=== PATIENT | female | born 1985 | race Caucasian/White ===

== ENCOUNTER 2020-03-19 05:34 | Inpatient (IN) ==
--- NOTE | 2020-03-18 10:31 | History & Physical Report ---
Date of Service March 18, 2020 Assessment & Plan (1) Breech presentation of fetus: The risks, benefits, and alternatives to the surgery have been discussed. While the benefits will be delivery of the infant, the risks are bleeding, infection, inadvertent injury to bowel or bladder, readmission, reoperation, deep venous thrombosis, or pulmonary embolus. All questions answered of the patient. The permit has been signed, and she wishes to proceed. This chart was completed utilizing M-Modal voice recognition software. Grammatical errors, random word insertions, pronoun errors, and incomplete sentences are occasional consequence of this system. Any questions or concerns about the content, text or information contained within the body of this dictation should be addressed directly to the physician for clarification History of Present Illness Chief Complaint: Breech Primary Care Provider: Mary Zavala DO The patient is a 34-year-old 1 para 0 with an EDC of 23 March, at 39+ weeks gestational age who was admitted for primary section for breech presentation. The patient's breech presentation was diagnosed at approximately 36 weeks gestational age. The patient had an attempted external cephalic version at 37 weeks on labor and delivery which was unsuccessful. Treatment options were discussed and the patient is admitted for the section. The patient has had a benign course. Her blood type is O-positive antibody negative, rubella immune, hepatitis B negative, she had a normal 1 hour Glucola x2, she had a negative cell free DNA screening, negative SMA and cystic fibrosis screen, and a positive 3rd trimester beta strep culture. Allergies Allergy/AdvReac Type Severity Reaction Status Date / Time No Known Allergies Allergy Verified 03/18/20 08:43 Home Medications Home Medications Medication Instructions Recorded Confirmed Type PNV no.[id number] 1 tab PO DAILY 03/03/20 03/18/20 History [ Gummies] ferrous sulfate 325 mg PO DAILY 03/03/20 03/18/20 History magnesium 30 mg PO 3XWK 03/03/20 03/18/20 History omega-3 fatty acids-fish oil 1 cap PO DAILY 03/03/20 03/18/20 History vitamin B complex 1 cap PO DAILY 03/03/20 03/18/20 History Patient History Medical History (Updated 03/18/20 @ 10:23 by Allan Omer Jr, MD, FACOG) H/O febrile seizure AGE 5 History of intestinal parasite (~03/18/14) GIARDIA Hx of gastritis Hx of varicella LGSIL on Pap smear of cervix Seasonal allergies Surgical History (Updated 03/16/20 @ 08:49 by Anjelica Cha, SHAUNNA) H/O colposcopy with cervical biopsy X 2 (NO ANESTHESIA USED) History of esophagogastroduodenoscopy (EGD) Family History (Updated 03/16/20 @ 08:50 by Anjelica Cha, SHAUNNA) Father Heart murmur Mother Hypertension Grandfather (Paternal) Colorectal cancer Family history of diabetes mellitus Social History (Updated 08/19/19 @ 11:16 by Migdalia Cha) Preferred Language: Khmer Labor Contractor Required: No Beliefs That Will Affect Care: None marital status: marital status details: Ab Pike (31) [phone] Current Living Situation: Spouse Current Living Situation Comment: lives spouse, 1 dog current occupational status: employed current occupation: Director of Rehab Feels Safe at Home: Yes Smoking Status: Never smoker Second Hand Exposure: No ; Hx Alcohol Use: No Hx Substance Use: No Physical Exam Constitutional: WD/WN, vitals as above Respiratory: Auscultation: lungs clear to auscultation bilaterally Cardiovascular: RRR, no murmur, no edema Extremities: no calf tenderness Gastrointestinal (Abdomen): Gravid, breech, positive heart tones, estimated weight is 7 1/2 llb Genitourinary: Closed posterior Coding Level of Care Code None Diagnoses Breech presentation of fetus O32.1XX0
[2020-03-19] MEDS ORDERED: CITRIC ACID/SODIUM CITRATE 15 ML UDC PO SCH (06:00)
[2020-03-19] MEDS ORDERED: CEFAZOLIN 2000MG 2,000 MG/15 ML SYR IV SCH (06:00)
[2020-03-19] MEDS ORDERED: LACTATED RINGER'S 1,000 ML IV SCH ×2 (06:00→09:25)
[2020-03-19 06:26] LABS: Basophils # (auto) 0.02 K/uL (0-0.2); Basophils % (auto) 0.2 %; Eosinophils # (auto) 0.06 K/uL (0-0.5); Eosinophils % (auto) 0.6 %; Hemoglobin 11.2 g/dL (12.0-16.0); Immature Granulocytes # (auto) 0.07 K/uL (0.00-0.02); Immature Granulocytes % (auto) 0.8 %; Lymphocytes # (auto) 2.06 K/uL (1.2-3.4); Lymphocytes % (auto) 22.3 %; Mean Corpuscular Hemoglobin 30.3 pg (25-34); Mean Corpuscular Hgb Conc 32.9 g/dL (32-36); Mean Corpuscular Volume 91.9 fL (80-100); Mean Platelet Volume 11.2 fL (7.4-10.4); Monocytes # (auto) 0.64 K/uL (0.11-0.59); Monocytes % (auto) 6.9 %; Neutrophils % (auto) 69.2 %; Platelet Count 196 K/uL (130-400); RDW Coefficient of Variation 13.4 % (11.5-14.5); RDW Standard Deviation 44.6 fL (36.4-46.3); White Blood Count 9.25 K/uL (4.8-10.8)
[2020-03-19] MEDS ORDERED: SODIUM CHLORIDE 0.9% 250 ML IV PRN (06:39)
[2020-03-19] MEDS ORDERED: MoRPHine SULFATE PF 1 MG/ML 10 ML AMP/VIAL ONE (06:47)
[2020-03-19] MEDS ORDERED: fentaNYL citrate 100 MCG/2 ML VIAL ONE (06:47)
--- NOTE | 2020-03-19 06:58 | Anesthesiology Consultation ---
Date of Service March 19, 2020 Assessment & Plan (1) Encounter for pre-operative examination: Chart Review Chart Review: Acceptable Risk for Surgery and Patient NOT seen in Pre Admission Testing Consults Requested none History Surgery Operation Date: 03/19/20 07:30 Proposed Procedures p Section in LD - Allan Omer Jr, MD, FACOG Height/Weight Height: 5 ft 3 in Weight: 71.668 kg Allergies Allergy/AdvReac Type Severity Reaction Status Date / Time No Known Allergies Allergy Verified 03/18/20 08:43 Medications Home Medications Medication Instructions Recorded Confirmed Last Taken PNV no.[id number] 1 tab PO DAILY 03/03/20 03/18/20 03/03/20 06:45 [ Gummies] ferrous sulfate 325 mg PO DAILY 03/03/20 03/18/20 03/02/20 19:00 magnesium 30 mg PO 3XWK 03/03/20 03/18/20 03/02/20 19:30 omega-3 fatty acids-fish oil 1 cap PO DAILY 03/03/20 03/18/20 03/02/20 19:30 vitamin B complex 1 cap PO DAILY 03/03/20 03/18/20 03/02/20 19:30 Active Medications Generic Name Dose Route Start Last Admin Trade Name Pastor PRN Reason Stop Dose Admin Lactated Ringer's 1,000 mls @ 999 mls/hr 03/19/20 06:00 03/19/20 06:00 Lr IV 03/19/20 07:00 999 mls/hr .Q1H1M DENISHA Administration NPO Date Last Intake of Fluids: 03/18/20 Time Last Intake of Fluids: 23:45 Date Last Intake of Solids: 03/18/20 Time Last Intake of Solids: 23:00 Past Medical History Medical History H/O febrile seizure AGE 5 History of intestinal parasite (~03/18/14) GIARDIA Hx of gastritis Hx of varicella LGSIL on Pap smear of cervix Seasonal allergies Exercise / Class Metabolic Activity II 4-5 Yardwork/Stairs/Walk up hill Past Family History Family History Father Heart murmur Mother Hypertension Grandfather (Paternal) Colorectal cancer Family history of diabetes mellitus Past Surgical History Surgical History H/O colposcopy with cervical biopsy X 2 (NO ANESTHESIA USED) History of esophagogastroduodenoscopy (EGD) Past Anesthesia History No Hx of Anesthesia Complications and No Family Hx of Anesthesia Complications History of PONV No Hx of PONV and No Hx of Motion Sickness Social History Smoking Status: Never smoker Do You Dip or Chew Tobacco: No Hx Alcohol Use: No Hx Substance Use: No substance use type: does not use Physical Exam Vital Signs Last Vital Signs Temp 36.9 C 03/19/20 05:41 Pulse 83 03/19/20 06:04 Resp 18 03/19/20 05:41 BP 122/82 03/19/20 06:04 Testing Laboratory Results 03/19/20 06:12
[2020-03-19] MEDS ORDERED: OXYTOCIN 10 UNITS/ML VIAL ONE (07:41)
[2020-03-19] MEDS ORDERED: PHENYLEPHRINE 100MCG/ML 5ML SYR ONE (07:41)
[2020-03-19] MEDS ORDERED: ONDANSETRON INJ 2 MG/ML 2 ML VIAL ONE (07:41)
[2020-03-19] MEDS ORDERED: NALOXONE HCL 0.4 MG/1 ML VIAL/CARP IV PRN (08:30)
[2020-03-19] MEDS ORDERED: DiphenhydrAMINE HCL 50 MG/ML VIAL IV PRN (08:30)
[2020-03-19] MEDS ORDERED: NO NARCOTICS OR SEDATIVES SCH (08:30)
[2020-03-19] MEDS ORDERED: DC INTRASPINAL MORPHINE SCH (08:30)
[2020-03-19] MEDS ORDERED: NALOXONE HCL 1 MG in SODIUM CHLORIDE 0.9% 1000ML 1,000 ML IV PRN (08:30)
[2020-03-19] MEDS ORDERED: MoRPHine SULFATE PF 1 MG/ML 10 ML AMP/VIAL INT SPINAL ONE (08:30)
[2020-03-19] MEDS ORDERED: LACTATED RINGER'S 500 ML IV PRN (08:30)
[2020-03-19] MEDS ORDERED: NALBUPHINE HCL INJ 10 MG/ML AMP IV PRN (08:30)
[2020-03-19] MEDS ORDERED: HYDROmorphone INJ 0.5 MG/0.5 ML SYR IV PRN (08:30)
[2020-03-19] MEDS ORDERED: NALOXONE HCL 0.08 MG in SYRINGE 1.8 ML IV PRN (08:30)
[2020-03-19] MEDS ORDERED: MoRPHine SULFATE 2 MG/ML CARP IV PRN (08:30)
[2020-03-19] MEDS ORDERED: ONDANSETRON INJ 2 MG/ML 2 ML VIAL IV PRN (08:30)
[2020-03-19] MEDS ORDERED: ePHEDrine sulfate 50 MG/ML AMP IV PRN (08:30)
[2020-03-19] MEDS ORDERED: SENNA 8.6 MG TAB PO PRN (08:39)
[2020-03-19] MEDS ORDERED: HYDROCORTISONE ACETATE 25 MG SUPP PR PRN (08:39)
[2020-03-19] MEDS ORDERED: SUPERCREAM 0.870% 15 GM JAR EXT PRN (08:39)
[2020-03-19] MEDS ORDERED: PROMETHAZINE HCL 25 MG in SODIUM CHLORIDE 0.9% 50 ML IV PRN (08:39)
[2020-03-19] MEDS ORDERED: BENZOCAINE 20% AER SPR 82.5 GM CAN EXT PRN (08:39)
[2020-03-19] MEDS ORDERED: MAGNESIUM HYDROXIDE SUSP 30 ML UDC PO PRN (08:39)
[2020-03-19] MEDS ORDERED: DIPHTHERIA/TETANUS/PERTUSSIS 0.5 ML SYR/VIAL IM ONE (08:39)
--- NOTE | 2020-03-19 08:43 | Post Operative Brief Note ---
PG Immediate Post Op with CF Date of Surgery March 19, 2020 Pre & Post Diagnosis Operation Date: 03/19/20 07:30 Pre-Op Diagnosis: 1.Term 2.Breech presentation Post-Op Diagnosis: Same I identified the patient and participated in the time-out.: Yes Procedure Operation Date: 03/19/20 07:30 Actual Procedures p Section in LD with the of a live female child at 0811. (Bilateral) - Allan Omer Jr, MD, FACOG Surgeon Allan Omer Jr, MD, FACOG Cardiac Rehabilitation Specialist Jose M Barton Estimated Blood Loss 800 Findings See Below (Viable female infant, Apgars 8/9; weight 6 lbs 8 ozs, delivered joyce breech, NC x 3, normal appearing tubes and ovaries) Specimens Specimen Description: A: Placenta-exam B: Cord Blood C: Cord Gases Drains Xie Catheter (xie cath placed after spinal anesthesia placed. Clear yellow urine noted upon insertion. )
--- NOTE | 2020-03-19 08:52 | Anesthesiology Progress Note ---
Date of Service March 19, 2020 Anesthesia Post Procedure Vital Signs Vital Signs: Temp Pulse Resp BP Pulse Ox 03/19/20 08:49 71 122/70 03/19/20 08:48 72 100 03/19/20 06:04 83 122/82 03/19/20 05:41 36.9 C 83 18 122/82 Transfer of Care Handoff Completed per policy Notes Mental Status: alert / awake / arousable and participated in evaluation Patient Amnestic to Procedure: No Nausea / Vomiting: adequately controlled Pain: adequately controlled Airway Patency, RR, SpO2: stable & adequate BP & HR: stable & adequate Hydration State: stable & adequate Neuraxial Anesthesia: was administered and sensory block is resolving Anesthetic Complications: no major complications apparent and Pt Satisfied with anesthetic care
--- NOTE | 2020-03-19 08:55 | History & Physical Bridge Note ---
Date of Service March 19, 2020 History & Physical Bridge Note I have examined the patient, reviewed the History & Physical and in the interval since the performance of the History & Physical I have noted the following changes of clinical significance: no changes noted
[2020-03-19 08:58] LABS: Base Excess Cord Arterial Bld 0.5 mEq/L (-9-1.8); CO2 Cord Arterial Blood 57 mmHg (39.1-73.5); HCO3 Cord Arterial Blood 28 mmol/L (19.7-28.5); PO2 Cord Arterial Blood 15 mmHg (4.1-31.7); pH Cord Arterial Blood 7.31 (7.1-7.38)
[2020-03-19 09:02] LABS: Cord Venous Blood HCO3 26 mmol/L (18.4-26.8); Cord Venous Blood PCO2 43 mmHg (30.4-57.2); Cord Venous Blood PO2 23 mmHg (14.1-43.3)
[2020-03-19 09:03] LABS: Oxygen Sat Cord Arterial Blood < 60.0 % (<60)
[2020-03-19 09:04] LABS: O2 Saturation Cord Venous Bld < 60.0 % (<68)
[2020-03-19] MEDS ORDERED: SODIUM CHLORIDE 0.9% 1000ML 1,000 ML IV SCH (09:25)
[2020-03-19] MEDS: OXYTOCIN 20 UNITS in LACTATED RINGER'S 1,000 ML IV SCH ×2 (10:36→20:19)
--- NOTE | 2020-03-19 10:36 | Operative Report (OR) ---
DATE OF OPERATION: 03/19/2020 PREOPERATIVE DIAGNOSES: 1. Term . 2. Breech presentation. POSTOPERATIVE DIAGNOSIS: Same. PROCEDURE PERFORMED: Primary low cervical transverse section. SURGEON: Allan Omer MD FARMWORKER LIVESTOCK: Dr. Geovanny Barajas ANESTHESIA: Epidural. FINDINGS: Viable female infant with Apgars of 8 and 10 and a weight of 6 pounds 8 ounces. Baby delivered from a joyce breech presentation with nuchal cord x3. Placenta delivered and sent for pathological evaluation. Normal appearing tubes and ovaries bilaterally. PROCEDURE IN DETAIL: The patient was taken to the operating room and after spinal anesthesia, was placed in a supine position and draped and prepped in the usual fashion. Pfannenstiel type incision was made. Underlying subcutaneous tissue was dissected down to the ventral abdominal fascia, which was nicked and opened in a horizontal manner. Preperitoneal fascia was dissected away until the peritoneal cavity was entered and opened in a vertical manner. Bladder blade was placed. Peritoneum overlying the uterus was elevated, opened in a semi-lunar fashion, the inferior margin of which was taken down creating the bladder flap. Uterus was entered sharply and extended in a semilunar fashion manually. Viable female with description as above delivered from a joyce breech presentation. Cord was clamped and cut. Cord gases and cord blood samples obtained. Placenta was delivered spontaneously and sent for pathological evaluation. The uterus was then exteriorized. The uterine cavity was wiped clean of any residual blood tissue and/or clot. The uterine incision was then closed with 2 layers of 4-0 Vicryl, the first a running locking stitch, the second an imbricating stitch. Hemostasis was achieved and the uterus was returned to the pelvic cavity. The pericolic gutters were cleared bilaterally of any blood tissue and/or clot. The pelvis was thoroughly irrigated with 1000 mL of warm saline. Sponge and needle count was correct. Inspection of the incision again showed hemostasis. The rectus muscles were plicated in the midline with a running 2-0 Vicryl stitch. The fascia was closed laterally with a running 0 Vicryl suture. The subcutaneous tissue was irrigated with warm saline and the skin incision was closed with 4-0 Monocryl subcuticular stitch. Sterile dressing was applied and the patient was taken to the recovery room in satisfactory condition. I attest to the content of the Intraoperative Record and any orders documented therein. Any exception s are noted below.
[2020-03-19] MEDS ORDERED: KETOROLAC 30 MG/ML VIAL IV PRN (13:15)
[2020-03-19] MEDS ORDERED: OXYCODONE/ACETAMINOPHEN 5mg/325mg TAB PO PRN (13:15)
[2020-03-19] MEDS: SIMETHICONE 80 MG CHEW PO SCH ×3 (13:26→22:12)
[2020-03-19] MEDS: KETOROLAC 30 MG/ML VIAL IV PRN (14:33)
--- NOTE | 2020-03-19 19:12 | Discharge Summary ---
Date of Service March 19, 2020 Admission HPI Per Admitting Provider The patient is a 34-year-old 1 para 0 with an EDC of 23 March, at 39+ weeks gestational age who was admitted for primary section for breech presentation. The patient's breech presentation was diagnosed at approximately 36 weeks gestational age. The patient had an attempted external cephalic version at 37 weeks on labor and delivery which was unsuccessful. Treatment options were discussed and the patient is admitted for the section. The patient has had a benign course. Her blood type is O-positive antibody negative, rubella immune, hepatitis B negative, she had a normal 1 hour Glucola x2, she had a negative cell free DNA screening, negative SMA and cystic fibrosis screen, and a positive 3rd trimester beta strep culture. Admission Exam (Per Admitting) Constitutional WD/WN, vitals as above Respiratory Auscultation: lungs clear to auscultation bilaterally Cardiovascular RRR, no murmur, no edema Extremities: no calf tenderness Discharge Data Consultations 03/19/20 05:57 Consult Anesthesiology Stat Procedures Performed Operation Date: 03/19/20 07:30 Actual Procedures p Section in LD with the of a live female child at 0811. (Bilateral) - Allan Omer Jr, MD, [facility] Course (1) Breech presentation of fetus: On the day of admission the patient was taken to the operating room where she underwent the above listed procedures operative findings showed a viable female with Apgars of 8 and 10 and weight of 6 pounds 8 ounces. Nuchal cord x3 of the baby was delivered from a complete breech presentation. Postoperatively the patient did well. Her Walter catheter was removed on postoperative day #1, her H&H came back at 11 and 33. By the second post- operative day the patient was doing well. She was tolerating a regular diet. SHe will follow-up in 2 weeks for a post-op check. Coding Level of Care Code None Diagnoses Breech presentation of fetus O32.1XX0
[2020-03-20] MEDS: KETOROLAC 30 MG/ML VIAL IV PRN (00:11)
[2020-03-20] MEDS ORDERED: DiphenhydrAMINE HCL 50 MG/ML VIAL IV PRN (02:30)
[2020-03-20] MEDS ORDERED: ONDANSETRON INJ 2 MG/ML 2 ML VIAL IV PRN (02:30)
--- NOTE | 2020-03-20 07:56 | Obstetrical Progress Note ---
Date of Service March 20, 2020 Assessment & Plan (1) Breech presentation of fetus: - dressing removed - discussed surgery and findings with patient - will begin ambulation - routine care, doing well Subjective Ambulation: limited ambulation Feeding Type:: breast feeding Physical Exam Constitutional WD/WN, vitals as above Respiratory normal respiratory effort, lungs clear to auscultation Cardiovascular RRR, no murmur, no edema Gastrointestinal (Abdomen) Dressing removed, Incision intact, appropriate post-op tenderness Musculoskeletal (-) deep calf tenderness Results & Data ([facility]) Vital Signs (Past 12 Hours) Vital Signs Temp Pulse Resp BP Pulse Ox 03/20/20 04:15 97.9 F 78 18 130/82 97 03/20/20 02:00 18 99 03/20/20 01:00 18 99 03/20/20 00:10 98.2 F 59 L 18 113/72 99 03/19/20 23:00 18 97 03/19/20 22:00 18 97 03/19/20 21:00 18 96 03/19/20 20:00 18 96
[2020-03-20] MEDS: FERROUS SULFATE 325 MG TAB PO SCH (08:20)
[2020-03-20] MEDS: SIMETHICONE 80 MG CHEW PO SCH ×4 (08:20→21:43)
[2020-03-20] MEDS: PRENATAL VITAMIN 1 TAB PO SCH ×2 (08:20→09:47)
[2020-03-20] MEDS: IBUPROFEN 600 MG TAB PO PRN ×2 (08:21→18:08)
[2020-03-20 11:28] LABS: Basophils # (auto) 0.01 K/uL (0-0.2); Basophils % (auto) 0.1 %; Eosinophils # (auto) 0.07 K/uL (0-0.5); Eosinophils % (auto) 0.5 %; Hemoglobin 10.4 g/dL (12.0-16.0); Immature Granulocytes # (auto) 0.04 K/uL (0.00-0.02); Immature Granulocytes % (auto) 0.3 %; Lymphocytes # (auto) 1.37 K/uL (1.2-3.4); Lymphocytes % (auto) 10.4 %; Mean Corpuscular Hemoglobin 30.1 pg (25-34); Mean Corpuscular Hgb Conc 33.5 g/dL (32-36); Mean Corpuscular Volume 89.6 fL (80-100); Mean Platelet Volume 10.3 fL (7.4-10.4); Monocytes # (auto) 0.66 K/uL (0.11-0.59); Neutrophils # (auto) 10.99 K/uL (1.4-6.5); Neutrophils % (auto) 83.7 %; Platelet Count 199 K/uL (130-400); RDW Coefficient of Variation 13.4 % (11.5-14.5); RDW Standard Deviation 43.7 fL (36.4-46.3); Red Blood Count 3.46 M/uL (4.2-5.4); White Blood Count 13.14 K/uL (4.8-10.8)
--- NOTE | 2020-03-20 11:44 | Anesthesiology Progress Note ---
Date of Service March 20, 2020 Anesthesia Post Procedure Vital Signs Vital Signs: Temp Pulse Resp BP Pulse Ox 03/20/20 08:00 98.1 F 64 18 112/72 98 03/20/20 04:15 97.9 F 78 18 130/82 97 03/20/20 02:00 18 99 03/20/20 01:00 18 99 03/20/20 00:10 98.2 F 59 L 18 113/72 99 03/19/20 23:00 18 97 03/19/20 22:00 18 97 03/19/20 21:00 18 96 03/19/20 20:00 18 96 03/19/20 19:45 97.9 F 57 L 18 132/79 97 03/19/20 18:00 18 99 03/19/20 17:00 18 98 03/19/20 16:00 18 99 03/19/20 15:40 97.9 F 72 18 124/80 03/19/20 15:00 18 98 03/19/20 14:00 20 100 03/19/20 13:00 96.8 F L 58 L 18 136/86 100 03/19/20 12:00 18 100 Pain Intensity Bilateral Abdomen: Pain Intensity: 1 Transfer of Care Handoff Completed per policy Notes Mental Status: alert / awake / arousable and participated in evaluation Patient Amnestic to Procedure: Yes Nausea / Vomiting: adequately controlled Pain: adequately controlled Airway Patency, RR, SpO2: stable & adequate BP & HR: stable & adequate Hydration State: stable & adequate Neuraxial Anesthesia: was administered and sensory block resolved Anesthetic Complications: no major complications apparent and Pt Satisfied with anesthetic care
[2020-03-21] MEDS: IBUPROFEN 600 MG TAB PO PRN ×2 (00:20→11:32)
[2020-03-21 06:13] LABS: Hemoglobin 9.7 g/dL (12.0-16.0)
--- NOTE | 2020-03-21 07:12 | Obstetrical Progress Note ---
Date of Service March 21, 2020 Assessment & Plan (1) : POD#2 doing well. Feels ready for discharge. Reviewed discharge instructions. Followup in 2w in office with Dr Omer for incision check. She is concerned about PP depression - plans to come in to office at 2w to check in with this also. Subjective Ambulation: ambulating normally Voiding: no voiding problems Passing Gas:: Yes Diet Tolerance:: regular diet Lochia:: Moderate Feeding Type:: breast feeding POD#2 doing well. Review of Systems All systems reviewed & are unremarkable except as noted in HPI & below Physical Exam Incision CDI Constitutional WD/WN, vitals as above no acute distress Respiratory normal respiratory effort Cardiovascular Rate/Rhythm: regular rate and regular rhythm Gastrointestinal (Abdomen) Inspection/Auscultation: abdomen normal to inspection; abdomen not distended Percussion/Palpation: abdomen soft Genitourinary OB Exam Abdomen: + fundal height Fundus: + firm; not tender Results & Data ([facility]) Vital Signs (Past 12 Hours) Vital Signs Temp Pulse Resp BP 03/21/20 00:05 36.7 C 85 16 120/80 03/20/20 20:05 36.8 C 85 18 131/85
[2020-03-21] MEDS: PRENATAL VITAMIN 1 TAB PO SCH (08:17)
[2020-03-21] MEDS: SIMETHICONE 80 MG CHEW PO SCH (08:17)
[2020-03-21] MEDS: DOCUSATE SODIUM 100 MG CAP PO SCH ×2 (08:17)
[2020-03-21] MEDS: FERROUS SULFATE 325 MG TAB PO SCH (08:17)
[2020-03-21] MEDS ORDERED: DOCUSATE SODIUM 100 MG CAP PO SCH (09:00)
[2020-03-21 09:34] VITALS: BP 127/75; PULSE 81; TEMP 98.4; O2SAT 96
== END 2020-03-21 15:10 | disposition home or self-care (01) | DRG 788 ==
LOC: 4S1 05:34 → EDSTATUS 07:30 → 4S2 12:00
DX: Z37.0 Single live birth; Z3A.39 39 weeks gestation of pregnancy; O32.1XX0 Maternal care for breech presentation, not applicable or unspecified

== ENCOUNTER 2023-05-17 05:32 | Inpatient (IN) ==
--- NOTE | 2023-05-10 11:39 | Anesthesiology Consultation ---
Date of Service May 10, 2023 Assessment & Plan (1) Encounter for pre-operative examination: Plan - c section 03/19/20 spinal L4-L5 1 attempt. - Per nurse practitioner home assessments on 05/10/2023: No known infectious disease contacts, current infectious disease symptoms in past 10 days or COVID positive test result in the past 90 days. Chart Review Chart Review: seat cover maker initiated History Surgery Operation Date: 05/17/23 07:30 Proposed Procedures p Section in LD (Delivery of Baby Through Abdominal Incision) - Bina Esquivel MD Height/Weight Height: 5 ft 3.5 in Weight: 69.853 kg Allergies Allergy/AdvReac Type Severity Reaction Status Date / Time No Known Allergies Allergy Verified 05/16/23 10:54 Medications Home Medications Medication Instructions Recorded Confirmed Last Taken prenat.vits,earl,sum-jvfv-pmqfb 1 tab PO DAILY 10/18/22 05/16/23 Unknown ferrous sulfate 325 mg (65 mg 325 mg PO UD 05/10/23 05/16/23 Unknown iron) tablet Past Medical History Medical History (Updated 05/10/23 @ 11:21 by Anjelica Cha RN) Carrier of group B Streptococcus H/O febrile seizure AGE 5 History of intestinal parasite (~03/18/14) GIARDIA Hx of gastritis Hx of varicella LGSIL on Pap smear of cervix Seasonal allergies Past Family History Family History (Updated 05/10/23 @ 11:23 by Anjelica Cha RN) Father Heart murmur Mother Hypertension Grandfather (Paternal) Family history of diabetes mellitus Colorectal cancer Other No family history of adverse response to anesthesia Denies family history of Ovarian cancer Breast cancer Past Surgical History Surgical History (Updated 05/10/23 @ 11:21 by Anjelica Cha RN) H/O colposcopy with cervical biopsy X 2 (NO ANESTHESIA USED) History of esophagogastroduodenoscopy (EGD) S/P section x 1 Stella teeth removed Social History Smoking Status: Never smoker Do You Dip or Chew Tobacco: No Hx Alcohol Use: No Hx Substance Use: No substance use type: does not use Physical Exam Vital Signs Last Vital Signs Temp 36.8 C 05/17/23 05:57 Pulse 90 05/17/23 05:48 Resp 18 05/17/23 05:57 BP 128/93 05/17/23 05:48 Lab Results Anesthesia Preop Results Results Anesthesia Widget: WBC 9.97 K/ul (4.8-10.8) 05/17/23 Hgb 11.9 g/dl (12.0-16.0) L 05/17/23 Hct 35.5 % (37.0-47.0) L 05/17/23 Plt 179 K/uL (130-400) 05/17/23 Blood Type O Positive 05/17/23 Antibody Screen NEGATIVE 05/17/23 Testing Laboratory Results 05/17/23 05:52 Blood Type O Positive 05/17/23 05:52 Antibody Screen NEGATIVE 05/17/23 05:52
[2023-05-17] MEDS ORDERED: CITRIC ACID/SODIUM CITRATE 15 ML UDC PO SCH (06:00)
[2023-05-17] MEDS ORDERED: LACTATED RINGER'S 1,000 ML IV SCH ×2 (06:00→08:30)
[2023-05-17] MEDS ORDERED: ceFAZolin 2,000 MG in SYRINGE 0 ML IV SCH (06:00)
[2023-05-17 06:29] LABS: Basophils # (auto) 0.05 K/uL (0.00-0.20); Basophils % (auto) 0.5 %; Eosinophils # (auto) 0.07 K/uL (0.00-0.50); Eosinophils % (auto) 0.7 %; Hematocrit (blood only) 35.5 % (37.0-47.0); Hemoglobin 11.9 g/dl (12.0-16.0); Lymphocytes # (auto) 2.69 K/uL (1.20-3.40); Mean Corpuscular Hemoglobin 29.9 pg (25.0-34.0); Mean Corpuscular Hgb Conc 33.5 g/dL (32.0-36.0); Mean Corpuscular Volume 89.2 fL (80.0-100.0); Monocytes # (auto) 0.86 K/uL (0.11-0.59); Monocytes % (auto) 8.6 %; Neutrophils % (auto) 62.2 %; Platelet Count 179 K/uL (130-400); RDW Standard Deviation 42.3 fL (36.4-46.3); Red Blood Count 3.98 M/uL (4.20-5.40); White Blood Count 9.97 K/ul (4.8-10.8)
[2023-05-17] MEDS ORDERED: OXYTOCIN 10 UNITS/ML VIAL ONE (06:44)
[2023-05-17] MEDS ORDERED: PHENYLEPHRINE HCL 10 MG/ML VIAL ONE (06:44)
[2023-05-17] MEDS ORDERED: WATER, STERILE FOR INJ 10 ML VIAL ONE (06:44)
[2023-05-17] MEDS ORDERED: MoRPHine SULFATE PF 1 MG/ML 10 ML AMP/VIAL ONE (06:45)
[2023-05-17] MEDS ORDERED: fentaNYL citrate PF 100 MCG/2 ML VIAL ONE ×2 (06:45→08:04)
[2023-05-17] MEDS ORDERED: ePHEDrine sulfate 50 MG/ML AMP IV PRN (07:13)
[2023-05-17] MEDS ORDERED: NALOXONE HCL 0.4 MG/1 ML VIAL/CARP IV PRN (07:13)
[2023-05-17] MEDS ORDERED: NALOXONE HCL 0.08 MG in SYRINGE 1.8 ML IV PRN (07:13)
[2023-05-17] MEDS ORDERED: ONDANSETRON INJ 2 MG/ML 2 ML VIAL IV PRN ×2 (07:13→08:28)
[2023-05-17] MEDS ORDERED: MoRPHine SULFATE PF 1 MG/ML 10 ML AMP/VIAL INT SPINAL ONE (07:13)
[2023-05-17] MEDS ORDERED: NALBUPHINE HCL INJ 10 MG/ML AMP IV PRN (07:13)
[2023-05-17] MEDS ORDERED: diphenhydrAMINE 50 MG/ML VIAL IV PRN (07:13)
[2023-05-17] MEDS ORDERED: HYDROmorphone INJ 0.5 MG/0.5 ML SYR IV PRN (07:13)
[2023-05-17] MEDS ORDERED: NALOXONE HCL 1 MG in SODIUM CHLORIDE 0.9% 1000ML 1,000 ML IV PRN (07:13)
[2023-05-17] MEDS ORDERED: LACTATED RINGER'S 500 ML IV PRN (07:13)
[2023-05-17] MEDS ORDERED: SODIUM CHLORIDE 0.9% 1000ML 1,000 ML IV SCH (07:15)
[2023-05-17] MEDS ORDERED: NO NARCOTICS OR SEDATIVES SCH (07:15)
[2023-05-17] MEDS ORDERED: DC INTRASPINAL MORPHINE SCH (07:15)
--- NOTE | 2023-05-17 07:22 | History & Physical Bridge Note ---
Date of Service May 17, 2023 History & Physical Bridge Note I have examined the patient, reviewed the History & Physical and in the interval since the performance of the History & Physical I have noted the following changes of clinical significance: no changes noted
[2023-05-17] MEDS ORDERED: ePHEDrine sulfate 50 MG/ML SYR ONE (07:49)
[2023-05-17] MEDS ORDERED: MIDAZOLAM HCL 1 MG/ML 2ML VIAL ONE (08:07)
[2023-05-17] MEDS ORDERED: SENNA 8.6 MG TAB PO PRN (08:28)
[2023-05-17] MEDS ORDERED: BENZOCAINE 20% SPRY 85 APPLN/85 GM CAN EXT PRN (08:28)
[2023-05-17] MEDS ORDERED: DIPHTHERIA/TETANUS/PERTUSSIS Vaccine (Tdap, Age 7+yrs) 0.5mL SYR/VL IM ONE (08:28)
[2023-05-17] MEDS ORDERED: MAGNESIUM HYDROXIDE SUSP 30 ML UDC PO PRN (08:28)
[2023-05-17] MEDS ORDERED: HYDROCORTISONE ACETATE 25 MG SUPP PR PRN (08:28)
--- NOTE | 2023-05-17 08:48 | Operative Report ---
PG Post Operative Report Pre & Post Diagnosis Operation Date: 05/17/23 07:30 Pre-Op Diagnosis: History of Section Post-Op Diagnosis: History of Section I identified the patient and participated in the time-out.: Yes Procedure Operation Date: 05/17/23 07:30 Actual Procedures Repeat Section, Low Transverse Surgeon Bina Esquivel MD Hydrometeorologist MD Esteban Estimated Blood Loss 500 Findings Consistent with Post-Op Diagnosis Specimens Placenta, cord blood Anesthesia Type Spinal Complications none Disposition Accompanied Patient To Recovery: Yes Disposition: L&D Description of Procedure The patient was placed operating table in the supine position with a leftward tilt. She was prepped and draped in standard sterile fashion. The anesthetic was tested and found to be adequate. A time-out was held, identifying correct patient, procedure, positioning and preoperative antibiotics. There were no concerns. A Pfannenstiel skin incision was made with a knife, excising the prior scar, and taken down to the underlying layer of fascia. The fascia was incised in the midline with the knife and taken out laterally with scissors. The superior edge of the fascial incision was grasped, elevated and dissected off the underlying rectus both superiorly and inferiorly. The muscles were bluntly in the midline. The peritoneum was entered bluntly. The incision was then str etched. The bladder retractor was placed. The vesicouterine peritoneum was identified, entered with scissors and taken out laterally with scissors. The bladder flap was created digitally. A hysterotomy incision was created transversely in the lower uterine segment, final entry being accomplished in a blunt manner with the brush operator's fingers. Clear amniotic fluid was encountered. The brush operator's hand was used to elevate the head to the hysterotomy. The head was delivered using mild fundal pressure, and the shoulders and body followed without difficulty. The cord was clamped and cut and the was then handed off to the awaiting cascara bark cutter. Cord blood was obtained. The placenta was Manually extracted. The uterus was exteriorized and cleared of all clot and debris with moistened laparotomy sponges. The hysterotomy incision was repaired in two layers, the first in a running locked layer, the second in an imbricating layer. A single additional eyzmeu-gv-spowa suture was applied in the midsection of the hysterotomy to complete hemostasis. The ovaries and tubes were seen to be normal bilaterally. The uterus was gently replaced in the abdomen, and the gutters were cleared of clot and debris. A final inspection of the hysterotomy revealed good hemostasis. The rectus muscles were allowed to reapproximate naturally. The fascia was then reapproximated with 1 Vicryl in a running nonlocked manner. The fascia was examined and found to be free of defect following closure. The subcutaneous tissue was copiously irrigated and reapproximated with 0-chromic, then the skin edges were closed with 4-0 monocryl in a subcuticular fashion. A dermabond dressing was applied. The xie was found to be draining clear yellow urine at completion of the procedure. I attest to the content of the Intraoperative Record and any orders documented therein. Any exceptions are noted below. I attest to the content of the Intraoperative Record and any orders documented therein. Any exceptions are noted below. OB Procedure Charges [id number]
--- NOTE | 2023-05-17 09:24 | Anesthesiology Progress Note ---
Date of Service May 17, 2023 Anesthesia Post Procedure Vital Signs Vital Signs: Temp Pulse Resp BP Pulse Ox 05/17/23 05:57 36.8 C 18 05/17/23 09:21 61 92 05/17/23 09:19 59 L 99 05/17/23 09:14 56 L 99 05/17/23 09:15 54 L 143/75 H 05/17/23 09:09 58 L 99 05/17/23 09:04 56 L 100 05/17/23 08:59 65 99 05/17/23 08:54 62 99 05/17/23 08:52 62 124/72 05/17/23 08:49 99 05/17/23 08:49 65 05/17/23 08:49 62 130/66 05/17/23 07:28 69 100 05/17/23 07:26 76 141/86 H 05/17/23 05:48 36.8 C 90 18 128/93 Transfer of Care Handoff Completed per policy Notes Mental Status: alert / awake / arousable and participated in evaluation Patient Amnestic to Procedure: Yes Nausea / Vomiting: adequately controlled Pain: adequately controlled Airway Patency, RR, SpO2: stable & adequate BP & HR: stable & adequate Hydration State: stable & adequate Neuraxial Anesthesia: was administered and sensory block is resolving Anesthetic Complications: no major complications apparent and Pt Satisfied with anesthetic care
[2023-05-17] MEDS: KETOROLAC 30 MG/ML VIAL IV PRN ×3 (10:51→23:55)
[2023-05-17] MEDS: OXYTOCIN 20 UNITS in LACTATED RINGER'S 1,000 ML IV SCH ×2 (10:56→19:50)
[2023-05-17] MEDS: SIMETHICONE 80 MG CHEW PO SCH ×2 (17:41→21:44)
[2023-05-17] MEDS: DOCUSATE SODIUM 100 MG CAP PO SCH (21:23)
[2023-05-18] MEDS ORDERED: diphenhydrAMINE Capsule 25 MG CAP PO PRN (01:15)
[2023-05-18] MEDS ORDERED: KETOROLAC 30 MG/ML VIAL IV PRN (01:15)
[2023-05-18] MEDS ORDERED: diphenhydrAMINE 50 MG/ML VIAL IV PRN (01:15)
[2023-05-18] MEDS ORDERED: oxyCODONE/ACETAMINOPHEN 5mg/325mg TAB PO PRN (01:15)
[2023-05-18] MEDS ORDERED: MEPERIDINE HCL 50 MG/ML CARP IV PRN (01:15)
[2023-05-18] MEDS ORDERED: PROMETHAZINE HCL 25 MG in SODIUM CHLORIDE 0.9% 50 ML IV PRN (01:15)
--- NOTE | 2023-05-18 06:29 | Obstetrical Progress Note ---
Date of Service May 18, 2023 Assessment & Plan (1) S/P section: Plan: encourage ambulation pain control Admission and Anticipated Discharge Date Admission Date: May 17, 2023 Supervising Physician Co-Signing Physician Notes Resident Physician Supervision Note: I interviewed and examined the patient. Discussed with Dr. Sandhu and agree with findings and plan as documented in the note. Any exceptions or clarifications are listed here: [ ] Documented By: Bina Esquivel MD, FACOG Subjective 38yo post day 1 s/p Ambulation: ambulating normally Voiding: no voiding problems Passing Gas:: Yes Diet Tolerance:: regular diet Lochia:: Small Feeding Type:: breast feeding Current Pain Level: minimal Resting comfortably this am. Denies MERCADO, CP, SOB, N/V/D, LE swelling Review of Systems Review of Systems: reviewed, per hpi Physical Exam Physical Exam: General: patient resting comfortably, NAD, non-toxic in appearance, AA&O x 4, answers questions appropriately. Skin: warm, dry, intact HEENT: NC/AT, anicteric sclera, conjunctiva without injection, moist mucus membranes. Heart: +S1/S2, regular, no m/r/g Lungs: equal air entry bilaterally, no rales/rhonchi/wheezes Abd: +BS, soft, NT/ND, uterine fundus firm at umbilicus, cesearean incision C/D/I Ext: warm, no clubbing/cyanosis or edema, Philip's neg Neuro: nonfocal, patient AA&O x 4, speech intact, no facial droop, moving all extremities on command. Results & Data Vital Signs (Past 12 Hours) Vital Signs Temp Pulse Resp BP Pulse Ox Pulse Ox O2 Del Method 05/18/23 03:10 36.5 C 68 18 115/72 98 Room Air 05/18/23 01:00 16 99 05/18/23 00:00 18 98 05/17/23 23:00 16 97 05/17/23 23:55 36.9 C 61 16 133/82 97 Room Air 05/17/23 22:00 16 99 05/17/23 21:00 16 98 05/17/23 20:00 18 97 05/17/23 19:44 16 99 05/17/23 19:44 36.6 C 68 16 123/82 99 Room Air 05/17/23 19:44 99 O2 Del Method 05/18/23 03:10 05/18/23 01:00 05/18/23 00:00 05/17/23 23:00 05/17/23 23:55 05/17/23 22:00 05/17/23 21:00 05/17/23 20:00 05/17/23 19:44 05/17/23 19:44 05/17/23 19:44 Room Air Resident Activity Tracking Resident Involvement: Resident Care Provided Care Provided: Adult Hospital Medicine
[2023-05-18] MEDS: IBUPROFEN 600 MG TAB PO PRN ×4 (06:32→22:09)
[2023-05-18 07:20] LABS: Basophils # (auto) 0.04 K/uL (0.00-0.20); Basophils % (auto) 0.3 %; Eosinophils # (auto) 0.12 K/uL (0.00-0.50); Hematocrit (blood only) 28.2 % (37.0-47.0); Hemoglobin 9.2 g/dl (12.0-16.0); Immature Granulocytes # (auto) 0.08 K/uL (0.01-0.20); Immature Granulocytes % (auto) 0.7 %; Lymphocytes # (auto) 1.67 K/uL (1.20-3.40); Lymphocytes % (auto) 14.5 %; Mean Corpuscular Hemoglobin 30.2 pg (25.0-34.0); Mean Corpuscular Hgb Conc 32.6 g/dL (32.0-36.0); Mean Corpuscular Volume 92.5 fL (80.0-100.0); Mean Platelet Volume 11.4 fL (9.4-12.4); Monocytes # (auto) 0.67 K/uL (0.11-0.59); Monocytes % (auto) 5.8 %; Neutrophils # (auto) 8.96 K/uL (1.40-6.50); Neutrophils % (auto) 77.7 %; Platelet Count 154 K/uL (130-400); RDW Coefficient of Variation 13.2 % (11.5-14.5); RDW Standard Deviation 44.8 fL (36.4-46.3); Red Blood Count 3.05 M/uL (4.20-5.40); White Blood Count 11.54 K/ul (4.8-10.8)
[2023-05-18] MEDS: FERROUS SULFATE 325 MG TAB PO SCH (07:39)
[2023-05-18] MEDS: PRENATAL VITAMIN 1 TAB PO SCH (07:39)
[2023-05-18] MEDS: SIMETHICONE 80 MG CHEW PO SCH ×4 (07:39→21:21)
[2023-05-18] MEDS: DOCUSATE SODIUM 100 MG CAP PO SCH ×2 (07:39→21:21)
[2023-05-18] MEDS ORDERED: bisacodyL 5 MG TABEC PO SCH (20:00)
[2023-05-19 06:26] LABS: Hematocrit (blood only) 24.5 % (37.0-47.0); Hemoglobin 8.2 g/dl (12.0-16.0)
--- NOTE | 2023-05-19 06:43 | Obstetrical Progress Note ---
Date of Service May 19, 2023 Assessment & Plan (1) S/P section: Plan: encourage ambulation pain control Admission and Anticipated Discharge Date Admission Date: May 17, 2023 Supervising Physician Co-Signing Physician Notes Resident Physician Supervision Note: I was present with Dr. Sandhu during the history and exam. I discussed the case with the resident and agree with the findings and plan as documented in the note. Any exceptions or clarifications are listed here: [None] Documented By: Sandy Mcmullen MD, FACOG Subjective 38yo post day 2 s/p Ambulation: ambulating normally Voiding: no voiding problems Passing Gas:: Yes Diet Tolerance:: regular diet Lochia:: Small Feeding Type:: breast feeding Current Pain Level: minimal Resting comfortably this am. Denies MERCADO, CP, SOB, N/V/D, LE swelling Review of Systems Review of Systems: reviewed, per hpi Physical Exam Physical Exam: General: patient resting comfortably, NAD, non-toxic in appearance, AA&O x 4, answers questions appropriately. Skin: warm, dry, intact HEENT: NC/AT, anicteric sclera, conjunctiva without injection, moist mucus membranes. Heart: +S1/S2, regular, no m/r/g Lungs: equal air entry bilaterally, no rales/rhonchi/wheezes Abd: +BS, soft, NT/ND, uterine fundus firm at umbilicus, cesearean incision C/D/I Ext: warm, no clubbing/cyanosis or edema, Philip's neg Neuro: nonfocal, patient AA&O x 4, speech intact, no facial droop, moving all extremities on command. Results & Data Vital Signs (Past 12 Hours) Vital Signs Temp Pulse Pulse Resp BP Pulse Ox O2 Del Method 05/19/23 00:25 36.4 C L 87 17 132/76 98 Room Air 05/18/23 20:15 Room Air 05/18/23 20:15 36.7 C 87 17 138/87 97 Room Air Resident Activity Tracking Resident Involvement: Resident Care Provided Care Provided: Adult [facility] Medicine
[2023-05-19] MEDS: SIMETHICONE 80 MG CHEW PO SCH (07:48)
[2023-05-19] MEDS: DOCUSATE SODIUM 100 MG CAP PO SCH (07:49)
[2023-05-19] MEDS: PRENATAL VITAMIN 1 TAB PO SCH (07:49)
[2023-05-19] MEDS: FERROUS SULFATE 325 MG TAB PO SCH (07:49)
[2023-05-19] MEDS: IBUPROFEN 600 MG TAB PO PRN ×2 (07:54→11:43)
[2023-05-19] MEDS ORDERED: bisacodyL 10 MG SUPP PR PRN (08:29)
--- NOTE | 2023-05-22 11:45 | Discharge Summary ---
Date of Service May 22, 2023 Discharge Data Consultations 05/17/23 05:11 Consult Anesthesiology Stat Procedures Performed Operation Date: 05/17/23 07:30 Actual Procedures p Section in LD (Delivery of Baby Through Abdominal Incision) of live female child at 0809 - Bina Esquivel MD Coding Level of Care Code None Diagnoses
== END 2023-05-19 12:09 | disposition home or self-care (01) | DRG 788 ==
LOC: 4S1 05:32 → EDSTATUS 07:30 → 4E2 11:22
DX: Z37.0 Single live birth; Z3A.39 39 weeks gestation of pregnancy; O34.211 Maternal care for low transverse scar from previous cesarean delivery; O99.824 Streptococcus B carrier state complicating childbirth